=== PATIENT | female | born 1955 | race Caucasian/White ===

== ENCOUNTER 2018-06-23 15:00 | Day surgery (SDC) | payer BC ==
[2018-06-22 14:10] VITALS: BP 126/82
[~2018-06-23] VITALS: Ht 167.6 cm; Wt 71.1 kg
[~2018-06-23 15:00] MED LIST: HYDR-3237 PO; LIDOCAINE 1%-EPI 1:100K, 30ML ONE; NAPR-685 PO
[2018-06-23] MEDS ORDERED: LACTATED RINGERS 1,000 ML IV SCH ×2 (15:36→19:30)
[2018-06-23] MEDS ORDERED: PROPOFOL 10 MG/ML, 20ML ONE (17:01)
[2018-06-23] MEDS ORDERED: FENTANYL PF 100 MCG/2ML ONE ×2 (17:03→17:26)
[2018-06-23] MEDS ORDERED: ACETAMINOPHEN 650 MG/20.3 ML UDC ONE (17:26)
[2018-06-23] MEDS ORDERED: OXYcodone 5 MG/5 ML ORAL.SOL UDC ONE (17:26)
[2018-06-23] MEDS: FENTANYL PF 100 MCG/2ML IV PRN ×2 (17:28→17:37)
[2018-06-23] MEDS ORDERED: OXYcodone 5 MG/5 ML ORAL.SOL UDC PO PRN (17:30)
[2018-06-23] MEDS ORDERED: HYDROmorphone 1 MG/ML, 1ML IV PRN (17:30)
[2018-06-23] MEDS ORDERED: KETOROLAC 30 MG/1 ML IV PRN (17:30)
[2018-06-23] MEDS ORDERED: ACETAMINOPHEN 325 MG TABLET PO PRN ×2 (17:30→19:30)
[2018-06-23] MEDS ORDERED: ONDANSETRON 2MG/ML, 2ML IV PRN (19:30)
[2018-06-23] MEDS ORDERED: morphine SULFATE 10 MG/ML, 1ML IV PRN (19:30)
[2018-06-23] MEDS ORDERED: OXYcodone/APAP 5/325MG TABLET PO PRN (19:30)
[2018-06-23] MEDS ORDERED: KETOROLAC 30 MG/1 ML IV SCH (19:30)
[2018-06-23] MEDS ORDERED: PROMETHAZINE 25 MG/ML, 1ML IM PRN (19:30)
[2018-06-23 19:54] VITALS: BP 121/63
== END 2018-06-23 22:00 | disposition home or self-care (01) ==
LOC: OR 15:00 → 4NOR 18:20 → OR 22:00
PROVIDERS: ATTEND Orthopaedic Surgery
DX: M24.662 Ankylosis, left knee (principal); Z96.652 Presence of left artificial knee joint; Z79.899 Other long term (current) drug therapy; Z72.89 Other problems related to lifestyle; Z98.890 Other specified postprocedural states; Z88.0 Allergy status to penicillin; Z82.49 Family history of ischemic heart disease and other diseases of the circulatory system
CPT/HCPCS: 27570; 64447; 93005; J2704; J3010; J7120; G0378; J3490